=== PATIENT | female | born 1985 | race African-American/Black ===

== ENCOUNTER 2020-06-25 15:55 | Emergency (ER) | payer OTHER ==
[~2020-06-25] VITALS: Ht 165.1 cm; Wt 90.7 kg
[~2020-06-25 15:55] MED LIST: ACCUNEB SO1.25 MG/1 INH; IBUPROFEN 800800 M1 PO; NORCO 5-325 TA1 EACH PO
[2020-06-25 17:18] VITALS: BP 120/83
[2020-06-25] MEDS ORDERED: VITAMIN D310 MC4 PO (17:23)
[2020-06-25] MEDS ORDERED: KLOR-CON M2020 MEQ PO (17:23)
[2020-06-25] MEDS ORDERED: FLEXERIL PO (18:58)
== END 2020-06-25 19:30 | disposition home or self-care (01) ==
LOC: ER 15:55
DX: M54.2 Cervicalgia (principal); J45.909 Unspecified asthma, uncomplicated; Z79.899 Other long term (current) drug therapy; V43.52XA Car driver injured in collision with other type car in traffic accident, initial encounter; Y93.89 Activity, other specified; Y92.410 Unspecified street and highway as the place of occurrence of the external cause; Y99.8 Other external cause status